=== PATIENT | male | born 1985 | race Caucasian/White ===

== ENCOUNTER 2022-11-15 10:56 | Emergency (ER) | payer BC, SELFPAY ==
[2022-11-15 11:28] VITALS: BP 122/78; PULSE 79; RESP 20; TEMP 36.4; O2SAT 99
--- NOTE | 2022-11-15 12:14 | ED.EAR ---
HPI - Ear Problem General Chief complaint: Ear Stated complaint: lt ear pain Time Seen by Provider: 11/15/22 12:15 Source: patient, RN notes reviewed and old records reviewed Mode of arrival: ambulatory Limitations: no limitations History of Present Illness HPI Narrative: 37-year-old male who presents to [facility] with 4 day history of bilateral ear itching with pain to his left ear, soreness and ringing in his left ear. Patient reports that he used ear wax kit to cleanse ears but continues to have left ear otalgia with ringing. Patient states minimal nasal drainage, denies any headache pain or sinus pressure or any fevers, chills or sweats ot body aches. Patient denies any feelings of dizziness or affected equilibrium issues. MD Complaint: ear pain and other (ringing) Location: left ear Duration: constant Severity: mild Discharge from ear: Reports no Treatment prior to arrival: other (ear wax removal kit) Related Data Allergies Allergy/AdvReac Type Severity Reaction Status Date / Time benzalkonium chloride AdvReac Rash Verified 11/15/22 11:36 cocamidopropyl betaine AdvReac Rash Verified 11/15/22 11:36 Review of Systems Review of Systems: CONSTITUTIONAL: Denies malaise, chills, sweats, or fever. EYES: Denies visual changes, redness, or discharge. ENT: Reports rhinorrhea, congestion,no sinus pain, left otalgia denies sore throat. CARDIOVASCULAR: Denies chest pain, palpitations, or edema. RESPIRATORY: Reports no cough.? Denies dyspnea. GASTROINTESTINAL: Denies abdominal pain, nausea, vomiting, diarrhea SKIN: Denies rash or itching. MUSCULOSKELETAL: Denies myalgia. NEUROLOGIC: Denies headache. All systems reviewed & are unremarkable except as noted in HPI and below PMFSH Past Medical History Medical History (Updated 11/16/22 @ 21:48 by Micaela Farmer NP) No pertinent past medical history Surgical History Surgical History (Updated 11/16/22 @ 21:49 by Micaela Farmer NP) No pertinent past surgical history Social History Social History (Updated 11/16/22 @ 21:47 by Micaela Farmer NP) Smoking status: Never smoker Alcohol intake: current Alcohol use details: social Substance use type: does not use Gender identity (if verbalized by the patient): Male Comments At time of signature, agree with nursing past medical, surgical, social and family history. There is no relevant family history pertinent to the presenting complaint Exam Narrative: GENERAL: Well-appearing, well-nourished, and in no acute distress. HEAD: Normocephalic EYES: PERRLA, conjunctivae clear ENT: Nares clear, turbinates edematous and erythematous, clear discharge. Mucous membranes moist. TM pearly myers with dull light reflex bilaterally; no tragal tenderness bilateral ear itchiness, left ear canal irritation with some redness noted, no swelling of canal. Oropharynx erythematous without lesions. Tonsils not enlarged and without exudate, no drooling, no hoarseness, no trismus, uvula midline. NECK: Supple. No lymphadenopathy CHEST: Clear to auscultation, breath sounds equal. No wheezing, rhonchi, rales, or stridor. No respiratory distress, speaks in full sentences. HEART: Regular rate and rhythm. No murmur heard. SKIN: Warm, dry, no rash. NEURO: Alert and oriented x3. PSYCH: Normal mood and affect Course Course Emergency Course: Patient is aware of diagnosis, understands and agrees to treatment plan.? Anticipatory guidance given.? Patient agrees to follow-up as directed and is aware of reasons to seek care at the emergency department. Portions of this record may have been created with voice recognition software Level of Care: Express Care Visit Vital Signs Vital signs: Vital Signs Temperature 36.4 C L 11/15/22 11:28 Pulse Rate 79 11/15/22 11:28 Respiratory Rate 20 11/15/22 11:28 Blood Pressure 122/78 11/15/22 11:28 Pulse Oximetry 99 11/15/22 11:28 Oxygen Delivery Room Air
== END 2022-11-15 12:40 | disposition home or self-care (01) ==
PROVIDERS: Emergency Provider Registered Nurse
DX: H60.92 Unspecified otitis externa, left ear (principal)
CPT/HCPCS: 99213; G0463